=== PATIENT | male | born 1995 | race Caucasian/White ===

== ENCOUNTER 2017-06-12 08:33 | Day surgery (SDC) | payer OTHER ==
[~2017-06-12 08:33] MED LIST: **UNRESOLVED NON-FORMULARY MED ORDER XX
[2017-06-12] MEDS ORDERED: LIDOCAINE 1% MDV 20ML VIAL SQ (08:45)
[2017-06-12] MEDS: LR 1,000 ML IV (09:20)
[2017-06-12] MEDS ORDERED: dexameTHASONE 4 MG/ML 1ML VIAL (J1100) As Ordered (10:31)
[2017-06-12] MEDS ORDERED: PROPOFOL 200 MG/20 ML VIAL As Ordered (10:31)
[2017-06-12] MEDS ORDERED: MIDAZOLAM INJ 2 MG/2 ML VIAL (J2250) As Ordered (10:31)
[2017-06-12] MEDS ORDERED: GLYCOPYRROLATE INJ 0.2 MG/ML 2 ML VIAL As Ordered (10:31)
[2017-06-12] MEDS ORDERED: SUCCINYLCHOLINE 100 MG/5 ML SYRINGE (J0330) As Ordered (10:31)
[2017-06-12] MEDS ORDERED: ROCURONIUM BROMIDE 50 MG/5 ML VIAL As Ordered (10:31)
[2017-06-12] MEDS ORDERED: NEOSTIGMINE 10 MG/10 ML VIAL (J2710) As Ordered (10:31)
[2017-06-12] MEDS ORDERED: ONDANSETRON 4MG/2ML VIAL (J2405) As Ordered ×2 (10:31→11:05)
[2017-06-12] MEDS ORDERED: fentaNYL 250 MCG/5 ML INJECTION (J3010) As Ordered (10:31)
[2017-06-12] MEDS ORDERED: PERCOCET 5MG/325MG TAB As Ordered (11:05)
[2017-06-12] MEDS ORDERED: fentaNYL 100 MCG/2 ML INJECTION (J3010) As Ordered (11:05)
[2017-06-12] MEDS: PERCOCET 5MG/325MG TAB PO ×2 (11:12→11:42)
[2017-06-12] MEDS: fentaNYL 100 MCG/2 ML INJECTION (J3010) IV ×4 (11:12→11:32)
[2017-06-12] MEDS ORDERED: LR 1,000 ML IV ×2 (11:15→11:30)
[2017-06-12] MEDS ORDERED: METOCLOPRAMIDE INJ 10MG/2ML VIAL (J2765) IV (11:30)
[2017-06-12] MEDS ORDERED: ONDANSETRON 4MG/2ML VIAL (J2405) IV (11:30)
== END 2017-06-12 12:38 | disposition home or self-care (01) ==
LOC: M SDC 08:33
DX: J35.01 Chronic tonsillitis (principal); F41.9 Anxiety disorder, unspecified; Z72.0 Tobacco use; Z79.899 Other long term (current) drug therapy
CPT/HCPCS: 42826